=== PATIENT | female | born 1995 | race Caucasian/White ===

== ENCOUNTER 2018-01-19 22:25 | Emergency (ER) | payer BC ==
[~2018-01-19] VITALS: Ht 154.9 cm; Wt 49.4 kg
[2018-01-19 22:25] VITALS: BP 125/69
[~2018-01-19 22:25] MED LIST: IBUP200C5 PO
[2018-01-19] MEDS ORDERED: IBUPROFEN 600 MG TABLET PO ONE ×2 (22:53→23:00)
[2018-01-19] MEDS ORDERED: AMOXICILLIN TRIHYDRATE 250 MG CAPSULE ONE (22:53)
[2018-01-19] MEDS ORDERED: AMOXICILLIN TRIHYDRATE 250 MG CAPSULE PO ONE (23:00)
== END 2018-01-19 23:07 | disposition home or self-care (01) ==
LOC: ER 22:25
DX: J02.9 Acute pharyngitis, unspecified (principal)
CPT/HCPCS: 99283; A4606; Z7610